=== PATIENT | male | born 1975 | race Caucasian/White ===

== ENCOUNTER 2016-07-13 00:48 | Emergency (ER) | payer OTHER, MEDICAID ==
[2016-07-13] MEDS ORDERED: FAMOTIDINE 20 MG/NACL 50 ML IV ONE (00:58)
[2016-07-13] MEDS ORDERED: NS 1,000 ML IV ONE (00:58)
[2016-07-13 01:06] VITALS: TEMP 97.7
--- NOTE | 2016-07-13 01:06 | EDPHY ---
H & P Time Seen by Provider: 07/13/16 00:57 HPI/ROS: HPI Vomiting, epigastric pain, history of pancreatitis. 41-year-old male by ambulance from the [facility]. He is at [place] secondary to his schizophrenia. 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 He reports he drank 2 large beers yesterday and since that time has had epigastric discomfort with nausea and 2 episodes of vomiting. Vomiting described as nonbilious nonbloody. No diarrhea. Last normal bowel movement was yesterday and was normal. No bloody or melenic stool. He denies any other complaints. He was started on IV normal saline 1 L by EMS. He was given 200 mcg of IV fentanyl and 4 mg of IV Zofran. ROS: Constitutional: No fever, no chills. No weakness. Eyes: No discharge. No changes in vision. ENT: No sore throat. No nasal congestion or rhinorrhea. Respiratory: No cough. No shortness of breath. Cardiac: No chest pain, no palpitations. Gastrointestinal: No abdominal pain, no vomiting, no diarrhea. Genitourinary: No hematuria. No dysuria or increased frequency with urination. Musculoskeletal: No back pain. No neck pain. No myalgias or arthralgias. Skin: No rashes. Neurological: No headache. No focal weakness or altered sensation. Past medical history: As above. Social history: Here by himself. Smoker. History of alcohol abuse. Cholecystectomy. Physical Exam: General Appearance: Alert, no distress. This patient is responding to questions appropriately and in full sentences. This patient appears well- hydrated and well-nourished. Eyes: Pupils equal and round no pallor or injection. No lid edema, erythema or injection. Respiratory: There are no retractions, lungs are clear to auscultation with good air movement bilaterally. Cardiovascular: Regular rate and rhythm. No murmur. Gastrointestinal: Abdomen is soft with mild epigastric tenderness on palpation , no masses, bowel sounds normal. No focal tenderness at McBurney's point. No Ocasio sign. Neurological: Motor sensory function is grossly intact. Cranial nerves are normal. Gait is normal. Skin: Warm and dry, no rashes. Musculoskeletal: Neck is supple and nontender. Extremities are symmetrical. All joints range without pain or impingement. Psychiatric: No agitation. No depression. Database: EKG: Imaging: Procedures: Emergency department course: Patient will be continued on IV normal saline. He has an allergy to hydromorphone. Vital signs have been reviewed. He will be given additional fentanyl IV as needed for pain control. He was given 20 mg of IV Pepcid. Abdomen is soft. Appropriate blood work will be checked. 1:50 a.m., patient re-evaluated. Resting comfortably at this time. He has been taking oral fluids without issue. Results of his lab work discussed with him. Repeat abdominal exam is soft, nontender nondistended. He feels comfortable being discharged and I feel he is safe to go home. Follow-up and return to emergency department precautions discussed with him. All of his questions were answered. He was discharged in good condition. Differential Diagnosis: The differential diagnosis on this patient includes but is not limited to pancreatitis, ulcerative versus non ulcerative gastritis. Cholecystitis, perforated peptic ulcer, bowel obstruction, other surgical etiology unlikely. This represents a partial list of diagnoses considered. These considerations are based on history, physical exam, past history, reassessment and diagnostic testing. Smoking Status: Never smoked Constitutional: Initial Vital Signs Temperature (C) 36.5 C 07/13/16 00:50 Heart Rate 75 07/13/16 00:50 Respiratory Rate 16 07/13/16 00:50 Blood Pressure 137/102 H 07/13/16 00:50 O2 Sat (%) 93 07/13/16 00:50 O2 Delivery Mode Room Air O2 (L/minute) 2 Allergies/Adverse Reactions: amoxicillin [Amoxicillin] Allergy (Intermediate, Verified 01/30/11 18:10) Hives Iodinated Contrast Media - Oral and [IV Dye, Iodine Containing] Allergy ( Intermediate, Verified 01/30/11 18:10) Hives Penicillins Allergy (Intermediate, Verified 01/30/11 18:10) Hives hydromorphone HCl [From Dilaudid] Allergy (Verified 07/13/16 01:12) morphine Allergy (Verified 07/13/16 01:12) Home Medications: Medication Instructions Recorded Benztropine Mesylate [Cogentin (*)] 3 mg PO HS 05/28/14 Calcium Carb W/Vit D [Calcium Carb 500 mg PO BIDMEAL 05/28/14 W/Vit D 500/200 (*)] Ergocalciferol [Vitamin D2 (*)] 50,000 i.unit PO FR@0800 05/28/14 LORazepam [Ativan (*)] 2 mg PO HS 05/28/14 Lorazepam [Ativan] 1.5 mg PO BID@08,12 05/28/14 Olanzapine [Olanzapine Odt] 15 mg PO DAILY 05/28/14 Calcium Carbonate [Tums 500MG (*)] 1,000 mg PO Q4H PRN 08/23/15 Dabigatran Etexilate Mesyl 150 mg PO BID 08/23/15 [Pradaxa 150 MG (*)] Dicyclomine [Bentyl 20 MG (*)] 20 mg PO Q8H 08/23/15 Dicyclomine [Bentyl 20 MG (*)] 20 mg PO Q8H PRN 08/23/15 Magnesium Hydroxide [Milk of 30 ml PO DAILY PRN 08/23/15 Magnesia (*)] Magnesium Hydroxide/Al Hydrox 20 ml PO Q4 PRN 08/23/15 [Mylanta Liquid] Melatonin [Melatonin 3 MG (*)] 3 mg PO HS 08/23/15 Olanzapine [Zyprexa] 5 mg PO Q24H PRN 08/23/15 Omeprazole Magnesium [Prilosec Otc] 20 mg PO Q24H PRN 08/23/15 Prochlorperazine Maleate 10 mg PO Q6 PRN 08/23/15 [Compazine 10mg (*)] Propranolol HCl [Inderal 40mg (*)] 40 mg PO BID 08/23/15 Sennosides/Docusate Sodium 1 tab PO Q24H PRN 08/23/15 [Senna-Docusate Sodium Tablet] Urea 40% [Urea Cream (*)] 1 tae TP BID 08/23/15 levETIRAcetam [Levetiracetam] 1,000 mg PO TID 08/23/15 oxyCODONE IR [Oxycodone Ir (*)] 5 mg PO Q4 PRN #6 tab 08/28/15 Medical Decision Making - Data Points Laboratory Results: Laboratory Results 07/13/16 00:50 07/13/16 00:50 07/13/16 07/13/16 00:50 00:50 WBC 5.70 10^3/uL 10^3/uL (3.80-9.50) RBC 4.95 10^6/uL 10^6/uL (4.40-6.38) Hgb 13.1 g/dL L g/dL (13.7-17.5) Hct 40.0 % % (40.0-51.0) MCV 80.8 fL L fL (81.5-99.8) MCH 26.5 pg L pg (27.9-34.1) MCHC 32.8 g/dL g/dL (32.4-36.7) RDW 14.7 % % (11.5-15.2) Plt Count 314 10^3/uL 10^3/uL (150-400) MPV 10.2 fL fL (8.7-11.7) Neut % (Auto) 47.2 % % (39.3-74.2) Lymph % (Auto) 37.7 % % (15.0-45.0) [place] % (Auto) 10.5 % % (4.5-13.0) Eos % (Auto) 3.3 % % (0.6-7.6) Baso % (Auto) 0.9 % % (0.3-1.7) Nucleat RBC Rel Count 0.0 % % (0.0-0.2) Absolute Neuts (auto) 2.69 10^3/uL 10^3/uL (1.70-6.50) Absolute Lymphs (auto) 2.15 10^3/uL 10^3/uL (1.00-3.00) Absolute Monos (auto) 0.60 10^3/uL 10^3/uL (0.30-0.80) Absolute Eos (auto) 0.19 10^3/uL 10^3/uL (0.03-0.40) Absolute Basos (auto) 0.05 10^3/uL 10^3/uL (0.02-0.10) Absolute Nucleated RBC 0.00 10^3/uL 10^3/uL (0-0.01) Immature Gran % 0.4 % % (0.0-1.1) Immature Gran # 0.02 10^3/uL 10^3/uL (0.00-0.10) Sodium 140 mEq/L mEq/L (134-144) Potassium 4.0 mEq/L mEq/L (3.5-5.2) Chloride 103 mEq/L mEq/L (97-110) Carbon Dioxide 25 mEq/l mEq/l (22-31) Anion Gap 12 mEq/L mEq/L (8-16) BUN 10 mg/dL mg/dL (7-23) Creatinine 1.0 mg/dL mg/dL (0.7-1.3) Estimated GFR > 60 Glucose 96 mg/dL mg/dL (70-100) Calcium 9.1 mg/dL mg/dL (8.5-10.4) Total Bilirubin 0.9 mg/dL mg/dL (0.1-1.4) Conjugated Bilirubin 0.4 mg/dL mg/dL (0.0-0.5) Unconjugated Bilirubin 0.5 mg/dL mg/dL (0.0-1.1) AST 20 IU/L IU/L (17-59) ALT 28 IU/L IU/L (21-72) Alkaline Phosphatase 63 IU/L IU/L (38-126) Total Protein 7.9 g/dL g/dL (6.3-8.2) Albumin 4.3 g/dL g/dL (3.5-5.0) Lipase 82.0 IU/L IU/L (23-300) Medications Given: Discontinued Medications Fentanyl (Sublimaze) 75 mcg IVP EDNOW ONE Stop: 07/13/16 01:52 Last Admin: 07/13/16 01:51 Dose: 75 mcg Sodium Chloride (Ns) 1,000 mls @ 0 mls/hr IV ONCE ONE PRN Reason: Wide Open Stop: 07/13/16 00:59 Last Admin: 07/13/16 01:00 Dose: 1,000 mls Famotidine/Sodium Chloride (Pepcid 20 Mg (Premix)) 50 mls @ 200 mls/hr IV EDNOW ONE Stop: 07/13/16 01:12 Last Admin: 07/13/16 01:00 Dose: 50 mls Ondansetron HCl (Zofran Odt 4 Mg Prepack#2) 1 btl TAKEHOME EDNOW ONE Stop: 07/13/16 01:59 Last Admin: 07/13/16 02:56 Dose: Not Given Departure - Departure Disposition: Home, Routine, Self-Care Clinical Impression: Pancreatitis, Vomiting Condition: Good Instructions: Ondansetron (By mouth), Pancreatitis (ED) Additional Instructions: Read and follow provided instructions. Follow-up with your primary care physician in 1-2 days for re-evaluation. Do not drink alcohol, or eat fatty or spicy foods. Return to the emergency department for worsening symptoms or other serious concerns. ZOFRAN 4 MG UNDER TONGUE NEEDED FOR NAUSEA EVERY 4-6 HOURS Referrals: Patient,NotPresent [Unknown] - As per Instructions
[2016-07-13 01:21] LABS: % IMMATURE GRANULYOCYTES 0.4 % (0.0-1.1); ABSOLUTE IMMATURE GRANULOCYTES 0.02 10^3/uL (0.00-0.10); ADD DIFF? NO; ADD MORPH? NO; ADD SCAN? NO; ATYPICAL LYMPHOCYTE FLAG 10 (0-99); FRAGMENT RBC FLAG 0 (0-99); HEMOGLOBIN 13.1 g/dL (13.7-17.5); LEFT SHIFT FLG 0 (0-99); LIPEMIA HEMOLYSIS FLAG 80 (0-99); MEAN CELL HEMOGLOBIN 26.5 pg (27.9-34.1); MEAN CELL HEMOGLOBIN CONCENTR. 32.8 g/dL (32.4-36.7); MEAN CELL VOLUME 80.8 fL (81.5-99.8); MEAN PLATELET VOLUME 10.2 fL (8.7-11.7); PLATELET CLUMPS FLAG 0 (0-99); PLATELET COUNT 314 10^3/uL (150-400); RED BLOOD CELL COUNT 4.95 10^6/uL (4.40-6.38); RED CELL DISTRIBUTION WIDTH 14.7 % (11.5-15.2)
[2016-07-13 01:26] LABS: ALANINE AMINOTRANSFERASE 28 IU/L (21-72); ALBUMIN 4.3 g/dL (3.5-5.0); ALKALINE PHOSPHATASE 63 IU/L (38-126); ANION GAP 12 mEq/L (8-16); ASPARTATE AMINOTRANSFERASE 20 IU/L (17-59); BILIRUBIN,TOTAL 0.9 mg/dL (0.1-1.4); BILIRUBIN-CONJUGATED 0.4 mg/dL (0.0-0.5); BILIRUBIN-UNCONJUGATED 0.5 mg/dL (0.0-1.1); CALCIUM 9.1 mg/dL (8.5-10.4); CARBON DIOXIDE 25 mEq/l (22-31); CHLORIDE 103 mEq/L (97-110); GLOMERULAR FILTRATION RATE > 60; GLUCOSE 96 mg/dL (70-100); SODIUM 140 mEq/L (134-144); TOTAL PROTEIN 7.9 g/dL (6.3-8.2)
[2016-07-13] MEDS ORDERED: fentaNYL 100 MCG/2 ML INJ ONE (01:46)
[2016-07-13] MEDS ORDERED: fentaNYL 100 MCG/2 ML INJ IVP ONE (01:51)
[2016-07-13] MEDS: ONDANSETRON 4MG PREPACK#2 BTL TAKEHOME ONE ×2 (02:04→02:56)
[2016-07-13 02:51] VITALS: BP 120/82; PULSE 66; RESP 16; O2SAT 100
== END 2016-07-13 02:52 | disposition home or self-care (01) ==
LOC: EDUNIT#
DX: K85.90 Acute pancreatitis without necrosis or infection, unspecified (principal); F17.200 Nicotine dependence, unspecified, uncomplicated; Z90.49 Acquired absence of other specified parts of digestive tract
CPT/HCPCS: 96365; 96375; 99284; J3010

== ENCOUNTER 2016-10-23 04:17 | Emergency (ER) | payer OTHER, MEDICAID ==
[2016-10-23] MEDS ORDERED: NS 1,000 ML IV ONE (04:19)
[2016-10-23] MEDS ORDERED: FAMOTIDINE 20 MG/NACL 50 ML IV ONE (04:19)
[2016-10-23 04:24] VITALS: RESP 16
[2016-10-23 04:58] LABS: % IMMATURE GRANULYOCYTES 0.6 % (0.0-1.1); ABSOLUTE IMMATURE GRANULOCYTES 0.03 10^3/uL (0.00-0.10); ADD DIFF? NO; ADD MORPH? NO; ADD SCAN? NO; ATYPICAL LYMPHOCYTE FLAG 20 (0-99); FRAGMENT RBC FLAG 0 (0-99); HEMATOCRIT 39.6 % (40.0-51.0); HEMOGLOBIN 12.8 g/dL (13.7-17.5); LEFT SHIFT FLG 0 (0-99); LIPEMIA HEMOLYSIS FLAG 80 (0-99); MEAN CELL HEMOGLOBIN 26.7 pg (27.9-34.1); MEAN CELL HEMOGLOBIN CONCENTR. 32.3 g/dL (32.4-36.7); MEAN CELL VOLUME 82.7 fL (81.5-99.8); MEAN PLATELET VOLUME 9.8 fL (8.7-11.7); PLATELET CLUMPS FLAG 0 (0-99); PLATELET COUNT 223 10^3/uL (150-400); RED BLOOD CELL COUNT 4.79 10^6/uL (4.40-6.38); RED CELL DISTRIBUTION WIDTH 16.1 % (11.5-15.2)
[2016-10-23 05:07] LABS: ALANINE AMINOTRANSFERASE 29 IU/L (21-72); ALKALINE PHOSPHATASE 62 IU/L (38-126); ANION GAP 11 mEq/L (8-16); ASPARTATE AMINOTRANSFERASE 42 IU/L (17-59); BILIRUBIN,TOTAL 1.4 mg/dL (0.1-1.4); BILIRUBIN-CONJUGATED 0.5 mg/dL (0.0-0.5); BILIRUBIN-UNCONJUGATED 0.9 mg/dL (0.0-1.1); CALCIUM 8.6 mg/dL (8.5-10.4); CARBON DIOXIDE 22 mEq/l (22-31); CHLORIDE 106 mEq/L (97-110); CREATININE 0.9 mg/dL (0.7-1.3); GLOMERULAR FILTRATION RATE > 60; GLUCOSE 119 mg/dL (70-100); POTASSIUM 3.9 mEq/L (3.5-5.2); SODIUM 139 mEq/L (134-144); SPECIMEN HEMOLYSIS 136; TOTAL PROTEIN 7.5 g/dL (6.3-8.2)
[2016-10-23] MEDS ORDERED: fentaNYL 100 MCG/2 ML INJ IVP ONE (05:14)
--- NOTE | 2016-10-23 05:41 | EDPHY ---
H & P Stated Complaint: ABD PAIN X 30 HRS AFTER DRINKING 6 PACK OF BEER HPI/ROS: HPI The patient presents brought in by ambulance from [place] where he resides for abdominal pain for the last 1 day after drinking a six-pack of beer yesterday. The pain is diffuse, achy, does not radiate and is associated with nausea without any vomiting. He has moderate in severity. In the ambulance he received Zofran 4 mg ODT. REVIEW OF SYSTEMS Constitutional: No fever, no chills. Eyes: No discharge. ENT: No sore throat. Cardiovascular: No chest pain, no palpitations. Respiratory: No cough, no shortness of breath. Gastrointestinal: Positive for Genitourinary: No hematuria. Musculoskeletal: No back pain. Skin: No rashes. Neurological: No headache. PMHx: Schizophrenia, history of cholecystectomy, many ER visits for abdominal pain and pancreatitis Soc Hx: Resides at [place], history of binge drinking PHYSICAL General Appearance: Alert, no distress Eyes: Pupils equal and round no pallor or injection ENT, Mouth: Mucous membranes moist Respiratory: There are no retractions, lungs are clear to auscultation Cardiovascular: Regular rate and rhythm Gastrointestinal: Abdomen is soft and non-tender, no masses, bowel sounds normal Neurological: A&O, moves all extremities Skin: Warm and dry, no rashes Musculoskeletal: Neck is supple non tender Extremities: symmetrical, full range of motion Psychiatric: Patient is oriented X 3, there is no agitation Source: Patient, EMS Exam Limitations: No limitations - Personal History Current Tetanus/Diphtheria Vaccine: Yes Current Tetanus Diphtheria and Acellular Pertussis (TDAP): Yes Tetanus Vaccine Date: POSSIBLY AT LAST ADMISSION - Medical/Surgical History Hx Asthma: No Hx Chronic Respiratory Disease: No Hx Diabetes: No Hx Cardiac Disease: No Hx Renal Disease: No Hx Cirrhosis: No Hx Alcoholism: Yes Hx HIV/AIDS: No Hx Splenectomy or Spleen Trauma: No Other PMH: pmh- chronic pancreatitis, GERD, Alcoholism, Anxiety, Schizophrenia, Brain aneurysm (ruptured), seizures, CVA, dvt/pe's, chronic abd/visceral pain, chronic narc use. psh- courtney - Social History Smoking Status: Never smoked Constitutional: Initial Vital Signs Temperature (C) 36.4 C 10/23/16 04:22 Heart Rate 60 10/23/16 04:22 Respiratory Rate 16 10/23/16 04:22 Blood Pressure 147/102 H 10/23/16 04:22 O2 Sat (%) 94 10/23/16 04:22 O2 Delivery Mode Room Air Allergies/Adverse Reactions: amoxicillin [Amoxicillin] Allergy (Intermediate, Verified 10/23/16 04:24) Hives Iodinated Contrast Media - Oral and [IV Dye, Iodine Containing] Allergy ( Intermediate, Verified 10/23/16 04:24) Hives Penicillins Allergy (Intermediate, Verified 10/23/16 04:24) Hives hydromorphone HCl [From Dilaudid] Allergy (Verified 10/23/16 04:24) morphine Allergy (Verified 10/23/16 04:24) Home Medications: Medication Instructions Recorded Benztropine Mesylate [Cogentin (*)] 3 mg PO HS 05/28/14 Calcium Carb W/Vit D [Calcium Carb 500 mg PO BIDMEAL 05/28/14 W/Vit D 500/200 (*)] Ergocalciferol [Vitamin D2 (*)] 50,000 i.unit PO FR@0800 05/28/14 LORazepam [Ativan (*)] 2 mg PO HS 05/28/14 LORazepam [Ativan] 1.5 mg PO BID@08,12 05/28/14 OLANZapine [Olanzapine Odt] 15 mg PO DAILY 05/28/14 Calcium Carbonate [Tums 500MG (*)] 1,000 mg PO Q4H PRN 08/23/15 Dabigatran Etexilate Mesyl 150 mg PO BID 08/23/15 [Pradaxa 150 MG (*)] Dicyclomine [Bentyl 20 MG (*)] 20 mg PO Q8H 08/23/15 Dicyclomine [Bentyl 20 MG (*)] 20 mg PO Q8H PRN 16 Magnesium Hydroxide [Milk of 30 ml PO DAILY PRN 08/23/15 Magnesia (*)] Magnesium Hydroxide/Al Hydrox 20 ml PO Q4 PRN 08/23/15 [Mylanta Liquid] Melatonin [Melatonin 3 MG (*)] 3 mg PO HS 08/23/15 OLANZapine [Zyprexa] 5 mg PO Q24H PRN 16 Omeprazole Magnesium [Prilosec Otc] 20 mg PO Q24H PRN 04/15/16 Prochlorperazine Maleate 10 mg PO Q6 PRN 08/23/15 [Compazine 10mg (*)] Propranolol HCl [Inderal 40mg (*)] 40 mg PO BID 08/23/15 Sennosides/Docusate Sodium 1 tab PO Q24H PRN 08/23/15 [Senna-Docusate Sodium Tablet] Urea 40% [Urea Cream (*)] 1 tae TP BID 08/23/15 levETIRAcetam [Levetiracetam] 1,000 mg PO TID 08/23/15 oxyCODONE IR [Oxycodone Ir (*)] 5 mg PO Q4 PRN #6 tab 08/28/15 Medical Decision Making Differential Diagnosis: This is a 41-year-old male with schizophrenia and alcohol use who presents after drinking a six-pack of beer with 1 day of diffuse abdominal pain which feels like his previous pancreatitis. On exam, he is well-appearing, his vital signs are normal, and his abdominal exam is quite benign with no areas of tenderness. Differential diagnosis includes alcoholic pancreatitis, gastritis, bowel perforation or obstruction. In the emergency room, the patient was given famotidine and IV fluids. Basic labs were checked and were all unremarkable including lipase. Repeat abdominal exam continued to be benign. I feel he may be experiencing some alcoholic gastritis and I feel pancreatitis is less likely. Peterson well enough to go home and was discharged in good condition. - Data Points Laboratory Results: Laboratory Results 10/23/16 04:50 10/23/16 04:50 10/23/16 10/23/16 04:50 04:50 WBC 5.04 10^3/uL 10^3/uL (3.80-9.50) RBC 4.79 10^6/uL 10^6/uL (4.40-6.38) Hgb 12.8 g/dL L g/dL (13.7-17.5) Hct 39.6 % L % (40.0-51.0) MCV 82.7 fL fL (81.5-99.8) MCH 26.7 pg L pg (27.9-34.1) MCHC 32.3 g/dL L g/dL (32.4-36.7) RDW 16.1 % H % (11.5-15.2) Plt Count 223 10^3/uL 10^3/uL (150-400) MPV 9.8 fL fL (8.7-11.7) Neut % (Auto) 63.3 % % (39.3-74.2) Lymph % (Auto) 23.6 % % (15.0-45.0) [place] % (Auto) 9.1 % % (4.5-13.0) Eos % (Auto) 2.4 % % (0.6-7.6) Baso % (Auto) 1.0 % % (0.3-1.7) Nucleat RBC Rel Count 0.0 % % (0.0-0.2) Absolute Neuts (auto) 3.19 10^3/uL 10^3/uL (1.70-6.50) Absolute Lymphs (auto) 1.19 10^3/uL 10^3/uL (1.00-3.00) Absolute Monos (auto) 0.46 10^3/uL 10^3/uL (0.30-0.80) Absolute Eos (auto) 0.12 10^3/uL 10^3/uL (0.03-0.40) Absolute Basos (auto) 0.05 10^3/uL 10^3/uL (0.02-0.10) Absolute Nucleated RBC 0.00 10^3/uL 10^3/uL (0-0.01) Immature Gran % 0.6 % % (0.0-1.1) Immature Gran # 0.03 10^3/uL 10^3/uL (0.00-0.10) Sodium 139 mEq/L mEq/L (134-144) Potassium 3.9 mEq/L mEq/L (3.5-5.2) Chloride 106 mEq/L mEq/L (97-110) Carbon Dioxide 22 mEq/l mEq/l (22-31) Anion Gap 11 mEq/L mEq/L (8-16) BUN 9 mg/dL mg/dL (7-23) Creatinine 0.9 mg/dL mg/dL (0.7-1.3) Estimated GFR > 60 Glucose 119 mg/dL H mg/dL (70-100) Calcium 8.6 mg/dL mg/dL (8.5-10.4) Total Bilirubin 1.4 mg/dL mg/dL (0.1-1.4) Conjugated Bilirubin 0.5 mg/dL mg/dL (0.0-0.5) Unconjugated Bilirubin 0.9 mg/dL mg/dL (0.0-1.1) AST 42 IU/L IU/L (17-59) ALT 29 IU/L IU/L (21-72) Alkaline Phosphatase 62 IU/L IU/L (38-126) Total Protein 7.5 g/dL g/dL (6.3-8.2) Albumin 4.0 g/dL g/dL (3.5-5.0) Lipase 96.0 IU/L IU/L (23-300) Specimen Hemolysis 136 Medications Given: Discontinued Medications Sodium Chloride (Ns) 1,000 mls @ 0 mls/hr IV ONCE ONE; Wide Open PRN Reason: Protocol Stop: 10/23/16 04:20 Last Admin: 10/23/16 05:12 Dose: 1,000 mls Famotidine/Sodium Chloride (Pepcid 20 Mg (Premix)) 50 mls @ 200 mls/hr IV EDNOW ONE Stop: 10/23/16 04:33 Last Admin: 10/23/16 05:10 Dose: 50 mls Departure - Departure Disposition: Home, Routine, Self-Care Clinical Impression: Abdominal pain Qualifiers: Abdominal location: generalized Qualified Code(s): R10.84 - Generalized abdominal pain Condition: Good Instructions: Abuse of Alcohol (ED) Additional Instructions: Please maintain a bland diet until your feeling better. You should return to the emergency room if your worse in any way. Referrals: GUERRERO NEW [Primary Care Provider] - As per Instructions
[2016-10-23] MEDS ORDERED: KETOROLAC 15 MG/1 ML SDV ONE (06:17)
[2016-10-23] MEDS ORDERED: KETOROLAC 15 MG/1 ML SDV IVP ONE (06:19)
[2016-10-23 06:31] VITALS: BP 142/99; PULSE 63; TEMP 97.7; O2SAT 93
== END 2016-10-23 07:08 | disposition home or self-care (01) ==
LOC: EDUNIT#
DX: R10.84 Generalized abdominal pain (principal)
CPT/HCPCS: 96365; 96375; 99284; J1885; J3010